=== PATIENT | male | born 1980 | race African-American/Black ===

== ENCOUNTER 2017-07-10 12:31 | Emergency (ER) | payer MEDICAID ==
[~2017-07-10] VITALS: Ht 170.2 cm; Wt 61.0 kg
[2017-07-10 13:21] VITALS: BP 124/88
[2017-07-10] MEDS ORDERED: ALBU18HF2 IH (13:24)
== END 2017-07-10 19:15 | disposition left against medical advice (07) ==
LOC: ER 19:00
DX: Z53.21 Procedure and treatment not carried out due to patient leaving prior to being seen by health care provider (principal)

== ENCOUNTER 2017-09-30 17:10 | Emergency (ER) | payer MEDICAID ==
[~2017-09-30] VITALS: Ht 160 cm; Wt 60.0 kg
[~2017-09-30 17:10] MED LIST: ALBU18HF2 IH
[2017-09-30 18:26] VITALS: BP 133/100
[2017-09-30] MEDS ORDERED: KETOROLAC 60MG/2ML VIAL IM ONE (18:30)
== END 2017-09-30 19:01 | disposition home or self-care (01) ==
LOC: ER 17:39
DX: M54.5 Low back pain (principal); J45.909 Unspecified asthma, uncomplicated; F17.200 Nicotine dependence, unspecified, uncomplicated; Z88.6 Allergy status to analgesic agent
CPT/HCPCS: 96372; 99283; J1885